=== PATIENT | female | born 1945 | race Caucasian/White ===

== ENCOUNTER → 2018-05-31 | Outpatient (CLI) | payer MEDICARE, MEDICAID | END | disposition home or self-care (01) | LOC: MAMMO 01:22 | DX: Z12.31 Encounter for screening mammogram for malignant neoplasm of breast (principal); R92.1 Mammographic calcification found on diagnostic imaging of breast ==

== ENCOUNTER 2024-12-24 12:33 | Emergency (ER) | payer OTHER ==
[~2024-12-24] VITALS: Ht 157.4 cm; Wt 93.4 kg
[2024-12-24 12:52] LABS: BASO % 0.3 % (0.0-1.0); EOS % 0.3 % (1.0-4.0); HEMATOCRIT 37.4 % (37.0-47.0); MEAN CELL VOLUME 77.8 fl (81.0-99.0); MEAN CORPUSCULAR HGB 25.8 pg (27.0-31.0); MEAN CORPUSCULAR HGB CONC 33.2 g/dl (33.0-37.0); MEAN PLATELET VOLUME 8.9 fl (9.6-12.3); MONO # 0.7 10*3/uL (0.1-1.0); MONO % 5.7 % (3.0-9.0); NEUT # 10.5 10*3/uL (2.3-7.9); NEUT % 81.6 % (47.0-73.0); PLATELET COUNT AUTOMATED 476 10*3/uL (130-400); RED BLOOD COUNT 4.81 10*6/uL (4.10-5.10); WHITE BLOOD COUNT 12.9 10*3/uL (4.8-10.8)
[2024-12-24 13:12] LABS: POTASSIUM 3.4 mmol/L (3.4-5.1)
[2024-12-24 14:24] LABS: BILIRUBIN Negative (Negative); BLOOD Negative (Negative); CLARITY Clear (Clear); COLOR Yellow (Yellow); GLUCOSE Negative (Negative); KETONE Negative (Negative); LEUKO ESTERASE Negative (Negative); NITRITE Negative (Negative); PH 7.5 (4.5-8.0); SPECIFIC GRAVITY <= 1.005 (1.001-1.030); UROBILINOGEN 0.2 E.U./dl (0.0-1.0)
[2024-12-24 14:43] LABS: BACTERIA 1+
[2024-12-24] MEDS ORDERED: METHOCARBAMOL500 M1 PO (15:18)
== END 2024-12-24 15:22 | disposition home or self-care (01) ==
LOC: ED 12:33
PROVIDERS: Physician Assistant Medical
DX: S16.1XXA Strain of muscle, fascia and tendon at neck level, initial encounter (principal); S09.90XA Unspecified injury of head, initial encounter; R19.7 Diarrhea, unspecified; I10 Essential (primary) hypertension; E03.9 Hypothyroidism, unspecified; E11.9 Type 2 diabetes mellitus without complications; E78.5 Hyperlipidemia, unspecified; W18.2XXA Fall in (into) shower or empty bathtub, initial encounter; Y93.89 Activity, other specified; Y92.128 Other place in nursing home as the place of occurrence of the external cause; Y99.8 Other external cause status

== ENCOUNTER → 2025-06-11 | Outpatient (CLI) | payer OTHER ==
[~2025-06-11] MED LIST: ALDACTONE50 M1 PO; CALCIUM 600 MG1 EAC6 PO; FERROUS SULFAT324 M2 PO; LASIX40 MG PO; LOVASTATIN40 MG PO; METFORMIN HYDR500 MG PO; METHOCARBAMOL500 M1 PO; NORVASC5 MG PO; PAXIL30 M2 PO; SODIUM CHLORI1000 M5 PO; Synthroid,Lev100 MCG PO
== END | disposition home or self-care (01) ==
LOC: MAMMO 15:48
PROVIDERS: ATTEND Internal Medicine
DX: Z12.31 Encounter for screening mammogram for malignant neoplasm of breast (principal)